=== PATIENT | female | born 1965 | race Caucasian/White ===

== ENCOUNTER 2017-05-04 15:18 | Emergency (ER) | payer SELFPAY ==
[~2017-05-04] VITALS: Ht 162.6 cm; Wt 87.0 kg
[2017-05-04] MEDS ORDERED: HYDR-3735 GT (15:29)
[2017-05-04] MEDS ORDERED: HYDROCODONE/ACETAMINOPHEN 5/325MG TABLET PO ONE (19:15)
[2017-05-04 19:41] VITALS: BP 139/65
[2017-05-04] MEDS ORDERED: BACITRACIN ZINC OINT UDPKT TOP ONE (20:00)
[2017-05-04] MEDS ORDERED: TETANUS AND DIPHTHERIA TOX/PF 0.5ML SYR (ADULT) IM ONE (20:00)
[2017-05-04] MEDS ORDERED: LIDOCAINE HCL 1% 20ML VIAL (Pyxis) INJ INFIL ONE (21:00)
== END 2017-05-04 21:43 | disposition home or self-care (01) ==
LOC: ER 16:09
DX: S41.112A Laceration without foreign body of left upper arm, initial encounter (principal); W23.0XXA Caught, crushed, jammed, or pinched between moving objects, initial encounter; Y93.89 Activity, other specified; Y92.89 Other specified places as the place of occurrence of the external cause; Y99.8 Other external cause status; Z87.01 Personal history of pneumonia (recurrent); Z98.890 Other specified postprocedural states
CPT/HCPCS: 12001; 73060; 73090; 81025; 99284; J3490; X7700; Z7610; 90714; A4565